=== PATIENT | male | born 1990 | race African-American/Black ===

== ENCOUNTER 2022-10-10 07:03 | Emergency (ER) | payer OTHER ==
[2022-10-10 18:20] LABS: Chlam.trachomatis by PCR,Urine Not Detected (NotDetected); GC N.gonorrhoeae PCR,UrineVOID Not Detected (NotDetected)
== END 2022-10-10 08:30 | disposition home or self-care (01) ==
LOC: CSHERS 07:03
DX: Z11.3 Encounter for screening for infections with a predominantly sexual mode of transmission (principal)
CPT/HCPCS: 87491; 87591; 99283